=== PATIENT | male | born 1975 | race African-American/Black ===

== ENCOUNTER 2019-04-24 08:36 | Emergency (ER) | payer SELFPAY ==
--- NOTE | 2019-04-24 09:43 | ER ---
Nurse's Notes [facility] Name: Gregg Cooper Age: 43 yrs Sex: Male : 1975 Arrival Date: 04/24/2019 Time: 08:38 Bed 7 Private MD: out of town, doctor Diagnosis: Near Syncope Presentation: 04/24 08:40 Presenting complaint: EMS states: [facility] [employer], was in morning safety meeting and ph began to have abdominal pain, N/D, denies vomiting, reports eating breakfast taco prior to episode, pt reports normal BM this morning before work and 2 episodes of diarrhea after breakfast, VSS. Transition of care: patient was not received from another setting of care. Onset of symptoms was April 24, 2019. Risk Assessment: Do you want to hurt yourself or someone else? Patient reports no desire to harm self or others. Initial Sepsis Screen: Does the patient meet any 2 criteria? No. Patient's initial sepsis screen is negative. Does the patient have a suspected source of infection? No. Patient's initial sepsis screen is negative. Care prior to arrival: None. 08:40 Method Of Arrival: EMS: [facility] 08:40 Acuity: MACIEJ 3 ph Historical: - Allergies: 08:46 No Known Allergies; ph - Home Meds: 08:46 None [Active]; ph - PMHx: 08:46 None; ph - PSHx: 08:46 None; ph - Immunization history:: Adult Immunizations unknown. - Social history:: Smoking status: Patient uses tobacco products, smokes one pack cigarettes per day. - Ebola Screening: : No symptoms or risks identified at this time. Screenin:47 Abuse screen: Denies threats or abuse. Denies injuries from another. Nutritional ph screening: No deficits noted. Tuberculosis screening: No symptoms or risk factors identified. Fall Risk None identified. Assessment: 08:47 General: Appears in no apparent distress. comfortable, slender, well groomed, Behavior ph is calm, cooperative, appropriate for age, Denies fever, feeling ill. Pain: Denies pain. Neuro: Level of Consciousness is awake, alert, obeys commands, Oriented to person, place, time, situation. Cardiovascular: Capillary refill < 3 seconds in bilateral fingers Patient's skin is warm and dry. Respiratory: Airway is patent Respiratory effort is even, unlabored, Respiratory pattern is regular, symmetrical. GI: Abdomen is flat, non-distended, Bowel sounds present X 4 quads. Abd is soft and non tender X 4 quads. Reports diarrhea, nausea, Patient currently denies bloody stool, vomiting. Derm: Skin is intact, Skin is pink, warm \T\ dry. Musculoskeletal: Circulation, motion, and sensation intact. Range of motion: intact in all extremities. 10:00 Reassessment: Patient appears in no apparent distress at this time. Patient and/or ph family updated on plan of care and expected duration. Pain level reassessed. Patient is alert, oriented x 3, equal unlabored respirations, skin warm/dry/pink. Patient denies pain at this time. Patient states feeling better. Vital Signs: 08:43 BP 131 / 95; Pulse 56; Resp 18; Temp 97.4; Pulse Ox 100% on R/A; Weight 81.65 kg; ph 09:00 BP 132 / 90 Supine; Pulse 55; Resp 17 S; Pulse Ox 99% on R/A; sg 09:10 BP 120 / 89 Sitting; Pulse 54; Pulse Ox 100% on R/A; sg 09:15 BP 113 / 83 Standing; Pulse 58; Resp 17 S; Pulse Ox 99% on R/A; sg 10:01 BP 122 / 86; Pulse 56; Resp 18; Temp 97.5; Pulse Ox 100% on R/A; Pain 0/10; ph ED Course: 08:38 Patient arrived in ED. sg 08:38 out of town, doctor is Private Physician. sg 08:38 Arm band placed on. sg 08:39 [facility] jr8 08:39 Prakash Urena MD is Attending Physician. jr8 08:40 Celeste Waters, HERMINIA is Primary Nurse. ph 08:43 Triage completed. ph 08:48 Patient has correct armband on for positive identification. Bed in low position. Call ph light in reach. Side rails up X 1. Pulse ox on. NIBP on. Door closed. Noise minimized. Warm blanket given. Head of bed elevated. 09:11 EKG done, by ED staff, reviewed by Garth NYE. sg 10:00 No provider procedures requiring assistance completed. Patient did not have IV access ph during this emergency room visit. Administered Medications: No medications were administered Outcome: 09:42 Discharge ordered by MD. roth 10:00 Discharged to home ambulatory. ph 10:00 Condition: good 10:00 Discharge instructions given to patient, Instructed on discharge instructions, follow up and referral plans. Demonstrated understanding of instructions, follow-up care. 10:01 Patient left the ED. ph Signatures: Diego King RN RN Garth Ly PA PA jr8 Celeste Waters RN RN
--- NOTE | 2019-04-24 09:43 | EDPHYS ---
Physician Documentation [facility] Name: Gregg Cooper Age: 43 yrs Sex: Male : 1975 Arrival Date: 04/24/2019 Time: 08:38 Bed 7 Private MD: out of town, doctor ED Physician Prakash Urena HPI: 04/24 09:14 This 43 yrs old Black Male presents to ER via EMS with complaints of Near jr8 Syncope/Diarrhea. 09:14 The patient has experienced near-syncope, almost passed out, felt dizzy. Onset: The jr8 symptoms/episode began/occurred acutely, today. Duration: This was a single episode, that lasted 5 minute(s). Context: the episode(s) was witnessed, by co-worker(s), occurred at work, occurred while the patient was standing, Just prior to the episode the patient experienced abdominal pain. Associated injury: The patient did not suffer any apparent associated injury. Associated signs and symptoms: The patient has no apparent associated signs or symptoms. Current symptoms: Currently, the patient is not experiencing any symptoms, the patient feels back to baseline, no decreased level of consciousness, no confusion, no dysphasia, no headache, no paralysis, no visual changes. The patient has not experienced similar symptoms in the past. The patient has not recently seen a physician. Patient stated that he started to have abdominal cramping while standing in meeting. While cramping started to feel dizzy and had ringing in ears. Fell like he was going to pass out. Sat down and safety was called. BP initially hypotensive. Now back to baseline per patient. Stated that he had two bouts of diarrhea and then felt much better. Patient sitting eating in exam room. No current complaints . Historical: - Allergies: 08:46 No Known Allergies; ph - Home Meds: 08:46 None [Active]; ph - PMHx: 08:46 None; ph - PSHx: 08:46 None; ph - Immunization history:: Adult Immunizations unknown. - Social history:: Smoking status: Patient uses tobacco products, smokes one pack cigarettes per day. - Ebola Screening: : No symptoms or risks identified at this time. ROS: 09:14 Eyes: Negative for injury, pain, redness, and discharge, ENT: Negative for injury, jr8 pain, and discharge, Neck: Negative for injury, pain, and swelling, Cardiovascular: Negative for chest pain, palpitations, and edema, Respiratory: Negative for shortness of breath, cough, wheezing, and pleuritic chest pain, Back: Negative for injury and pain, MS/Extremity: Negative for injury and deformity, Skin: Negative for injury, rash, and discoloration. 09:14 Abdomen/GI: Positive for abdominal pain, diarrhea, abdominal cramps, Negative for hematemesis, black/tarry stool, rectal pain, rectal bleeding, bowel incontinence, flatulence. Exam: 09:14 Constitutional: This is a well developed, well nourished patient who is awake, alert, jr8 and in no acute distress. Eyes: Pupils equal round and reactive to light, extra-ocular motions intact. Lids and lashes normal. Conjunctiva and sclera are non-icteric and not injected. Cornea within normal limits. Periorbital areas with no swelling, redness, or edema. ENT: Nares patent. No nasal discharge, no septal abnormalities noted. Tympanic membranes are normal and external auditory canals are clear. Oropharynx with no redness, swelling, or masses, exudates, or evidence of obstruction, uvula midline. Mucous membranes moist. Neck: Trachea midline, no thyromegaly or masses palpated, and no cervical lymphadenopathy. Supple, full range of motion without nuchal rigidity, or vertebral point tenderness. No Meningismus. Cardiovascular: Regular rate and rhythm with a normal S1 and S2. No gallops, murmurs, or rubs. Normal PMI, no JVD. No pulse deficits. Respiratory: Lungs have equal breath sounds bilaterally, clear to auscultation and percussion. No rales, rhonchi or wheezes noted. No increased work of breathing, no retractions or nasal flaring. Abdomen/GI: Soft, non-tender, with normal bowel sounds. No distension or tympany. No guarding or rebound. No evidence of tenderness throughout. Back: No spinal tenderness. No costovertebral tenderness. Full range of motion. Skin: Warm, dry with normal turgor. Normal color with no rashes, no lesions, and no evidence of cellulitis. MS/ Extremity: Pulses equal, no cyanosis. Neurovascular intact. Full, normal range of motion. Neuro: Awake and alert, GCS 15, oriented to person, place, time, and situation. Cranial nerves II-XII grossly intact. Motor strength 5/5 in all extremities. Sensory grossly intact. Cerebellar exam normal. Normal gait. 09:14 ECG was reviewed by the Attending Physician. Vital Signs: 08:43 BP 131 / 95; Pulse 56; Resp 18; Temp 97.4; Pulse Ox 100% on R/A; Weight 81.65 kg; ph 09:00 BP 132 / 90 Supine; Pulse 55; Resp 17 S; Pulse Ox 99% on R/A; sg 09:10 BP 120 / 89 Sitting; Pulse 54; Pulse Ox 100% on R/A; sg 09:15 BP 113 / 83 Standing; Pulse 58; Resp 17 S; Pulse Ox 99% on R/A; sg 10:01 BP 122 / 86; Pulse 56; Resp 18; Temp 97.5; Pulse Ox 100% on R/A; Pain 0/10; ph MDM: 08:41 Patient medically screened. [email or web address] 09:39 Data reviewed: vital signs, nurses notes, EKG, and as a result, I will discharge jr8 patient. Data interpreted: Pulse oximetry: on room air is 99 %. Interpretation: normal. Counseling: I had a detailed discussion with the patient and/or guardian regarding: the historical points, exam findings, and any diagnostic results supporting the discharge/admit diagnosis, the need for outpatient follow up, a family practitioner, to return to the emergency department if symptoms worsen or persist or if there are any questions or concerns that arise at home. ED course: After discussing episode with patient. It clinically sounds like he had a vasovagal episode. After his cramping stopped and he had two bowel movements. Patient stated that he felt markedly better. Now without any s/s. ECG and orthostatics normal. Physical Exam unremarkable. Eating and resting in exam room currently. Will send home to rest for next day or two and hydrate. Knows to come back if worse . 04/24 09:04 Order name: EKG; Complete Time: :04/24 09:04 Order name: EKG - Nurse/Tech; Complete Time: :04/24 09:12 Order name: Orthostatics; Complete Time: :14 EC:14 Rate is 53 beats/min. Rhythm is regular, Sinus bradycardia. QRS [place] is Normal. SC jr8 interval is prolonged at 226 msec. QRS interval is normal at 102 msec. QT interval is normal at 407 msec. No Q waves. T waves are Normal in leads I, II, III, aVL, aVF, V1, V3, V4, V5, V6. T waves are Inverted in lead V2. No ST changes noted. Clinical impression: Sinus bradycardia and No evidence of ischemia. Interpreted by me. Reviewed by me. Administered Medications: No medications were administered Disposition: 15:35 Co-signature as Attending Physician, Prakash Urena MD I agree with the assessment and zeferino plan of care. Disposition: 04/24/19 09:42 Discharged to Home. Impression: Near Syncope. - Condition is Stable. - Discharge Instructions: Near-Syncope, Vasovagal Syncope, Adult. - Medication Reconciliation Form, Thank You Letter, Antibiotic Education, Prescription Opioid Use form. - Follow up: Private Physician; When: 2 - 3 days; Reason: Recheck today's complaints, Continuance of care, Re-evaluation by your physician. - Problem is new. - Symptoms are resolved. Signatures: Prakash Urena MD MD cha Roszak, Josh, PA PA jr8 Celeste Waters RN RN ph Corrections: (The following items were deleted from the chart) 10:01 09:42 04/24/2019 09:42 Discharged to Home. Impression: Near Syncope. Condition is ph Stable. Forms are Medication Reconciliation Form, Thank You Letter, Antibiotic Education, Prescription Opioid Use. Follow up: Private Physician; When: 2 - 3 days; Reason: Recheck today's complaints, Continuance of care, Re-evaluation by your physician. Problem is new. Symptoms are resolved. jr8
--- NOTE | 2019-04-25 11:37 | EKG ---
Test Date: 2019-04-24 Test Time: 09:11:08 Lithography Contact Worker: SWG MEASUREMENT RESULTS: Intervals: Rate: 53 SC: 226 QRSD: 102 QT: 434 QTc: 407 [place]: P: 73 SC: 226 QRS: 96 T: 82 INTERPRETIVE STATEMENTS: Sinus bradycardia with 1st degree AV block Rightward axis ST elevation, consider early repolarization, pericarditis, or injury Nonspecific ST abnormality Abnormal ECG No previous ECG available for comparison Electronically Signed On 04-25-19 07:38:36 CDT by Mick Beltre
== END 2019-04-24 10:01 | disposition home or self-care (01) ==
LOC: ER 08:36
DX: R55 Syncope and collapse (principal); F17.210 Nicotine dependence, cigarettes, uncomplicated
CPT/HCPCS: 93005; 99284